=== PATIENT | female | born 1990 | race Caucasian/White ===

== ENCOUNTER 2018-03-12 08:56 | Emergency (ER) | payer MEDICAID, OTHER ==
--- NOTE | 2018-03-12 10:26 | CR ---
DATE OF SERVICE: 03/12/18 CLINICAL DATA: Wrist pain RIGHT WRIST: There is a small osseous density dorsal to the proximal carpal row on the lateral view consistent with a small bony avulsion. This does appear to be acute. No other acute abnormalities. No dislocation. [id number] [facility]
--- NOTE | 2018-03-12 13:23 | ER ---
DATE OF SERVICE: 03/12/2018 The patient is a 27-year-old female, who comes into the ER having fallen and landed on her right wrist. She has pain on the lateral aspect of the wrist. There is minimal swelling. No ecchymosis or abrasion. She was wearing a Fitbit. She feels like her Fitbit had pressed into that area and injured it. She did land on her hand. An x-ray was obtained. The patient has a nondisplaced chip fracture on the triquetral bone. The patient was sent over to the clinic, where the casting material was available, and a cast was applied. I did discuss with the patient that she needs to be careful, as it could continue to swell, so she is going to go home and elevate it, ice it, and if there is any swelling, numbness, tingling in her fingers or if the cast for any reason feels too tight, would have her return to clinic and we would remove the cast or at least bivalve it for now. ASSESSMENT: Triquetral fracture. MARCELA/LEX /[id number] BAYLEE
== END 2018-03-12 10:16 | disposition home or self-care (01) ==
LOC: LB.ED 08:56
DX: S62.114A Nondisplaced fracture of triquetrum [cuneiform] bone, right wrist, initial encounter for closed fracture (principal); W11.XXXA Fall on and from ladder, initial encounter
CPT/HCPCS: 73100-RT; 99283

== ENCOUNTER 2018-07-11 19:16 | Emergency (ER) | payer OTHER ==
[2018-07-11] MEDS ORDERED: LORazepam 2 MG/ML SDV IM ONE (19:42)
[2018-07-11] MEDS ORDERED: LORazepam 1 MG Tab ONE (20:00)
--- NOTE | 2018-07-12 08:12 | EDM.PDOCBH ---
ED HPI GENERAL MEDICAL PROBLEM - General Chief Complaint: Behavioral/Psych Stated Complaint: ANXIETY ATTACK Time Seen by Provider: 07/11/18 19:48 Source of Information: Reports: Patient History Limitations: Reports: No Limitations - History of Present Illness INITIAL COMMENTS - FREE TEXT/NARRATIVE: This is a 27yo F here for an anxiety attack. She has had some minor attacks in the past but todays episodes have been severe and the one that brought her to the ER has been the worse. She is hyperventilation and nursing staff recommended breathing into a brown paper bag. She is changing jobs and under increased stress. Onset: Sudden Duration: Minutes:, Getting Worse Location: Reports: Generalized - Related Data Allergies Allergy/AdvReac Type Severity Reaction Status Date / Time No Known Allergies Allergy Verified 07/11/18 23:10 Home Meds: Home Meds NK [No Known Home Meds] 07/11/18 [History] Past Medical History - Past Health History Medical/Surgical History: Denies Medical/Surgical History HEENT History: Reports: Impaired Vision Musculoskeletal History: Reports: Fracture, Other (See Below) Other Musculoskeletal History: chipped bone in right wrist Psychiatric History: Reports: Anxiety, Panic Attack - Past Surgical History HEENT Surgical History: Reports: None Musculoskeletal Surgical History: Reports: None Social & Family History - Tobacco Use Smoking Status *Q: Never Smoker - Recreational Drug Use Recreational Drug Use: No ED ROS GENERAL - Review of Systems Review Of Systems: ROS reveals no pertinent complaints other than HPI. ED EXAM, BEHAVIORAL HEALTH - Physical Exam Exam: See Below Exam Limited By: No Limitations General Appearance: Alert, WD/WN, Severe Distress Eye Exam: Bilateral Eye: EOMI, PERRL Ears: Normal External Exam Nose: Normal Inspection Throat/Mouth: Normal Inspection Head: Atraumatic, Normocephalic Neck: Normal Inspection, Supple, Non-Tender Respiratory/Chest: No Respiratory Distress, Lungs Clear, No Accessory Muscle Use Cardiovascular: Normal Peripheral Pulses, Tachycardia GI/Abdominal: Normal Bowel Sounds Back Exam: Normal Inspection Extremities: Normal Inspection Neurological: Alert Psychiatric: Alert, Tearful, Agitated, Pressured Speech Skin Exam: Warm, Dry, Intact COURSE, BEHAVIORAL HEALTH COMP - Course Vital Signs: Last Vital Signs Temp 37.4 C 07/11/18 19:58 Pulse 112 H 07/11/18 19:58 Resp 20 07/11/18 19:58 BP 111/78 07/11/18 19:58 Pulse Ox 96 07/11/18 19:58 Orders, Labs, Meds: Medications Discontinued Medications Generic Name Dose Route Start Last Admin Trade Name Carlos PROlman Reason Stop Dose Admin Lorazepam 1 mg 07/11/18 19:42 07/11/18 19:47 Ativan IM 07/11/18 19:43 1 mg ONETIME ONE Administration Departure - Departure Time of Disposition: 20:30 Disposition: Home, Self-Care 01 Condition: Good Clinical Impression: Panic disorder, Panic attack - Discharge Information Instructions: Hyperventilation, Alprazolam tablets, Panic Attack, Lorazepam tablets Referrals: PCP,None [Primary Care Provider] - Forms: ED Department Discharge Additional Instructions: We sent you home with Ativan (Lorazepam). You can start by taking 1/2 tab daily for anxiety. If it doesn't work, take the other half. You may take 1mg (1 tab) 3 times a day if needed. Fill the script for Xanax (Alprazolam) at the local pharmacy. Take this medication the same way you do the Ativan. Follow up at the clinic as needed. If you are having frequent panic attacks, we can see about starting you on a longer acting medication for anxiety. No driving or using alcohol while on this medication. If you are still having anxiety, do not go to work. - Problem List & Annotations (1) Panic attack SNOMED Code(s): 052488722 Code(s): F41.0 - PANIC DISORDER [EPISODIC PAROXYSMAL ANXIETY] Status: Acute (2) Panic disorder SNOMED Code(s): 454842606 Code(s): F41.0 - PANIC DISORDER [EPISODIC PAROXYSMAL ANXIETY] Status: Acute - Problem List Review Problem List Initiated/Reviewed/Updated: Yes - Assessment/Plan Plan: Counseled on medication use and side effects. Discussed addiction and close monitoring of sedation with medication use. Discussed sparing use. Patient to f/ u in clinic in 1-2 wks. F/u as needed.
== END 2018-07-11 20:22 | disposition home or self-care (01) ==
LOC: LB.ED 19:28
DX: F41.0 Panic disorder [episodic paroxysmal anxiety] (principal)
CPT/HCPCS: 96372; 99282; A9270-GY; J2060

== ENCOUNTER 2022-07-17 08:16 | Emergency (ER) | payer MEDICAID ==
[2022-07-17] MEDS ORDERED: Ketorolac 60 MG/2 ML SDV IM ONE (09:00)
[2022-07-17] MEDS ORDERED: Ketorolac 60 MG/2 ML SDV ONE (09:10)
== END 2022-07-17 09:15 | disposition home or self-care (01) ==
LOC: LB.ED 08:16
DX: S46.912A Strain of unspecified muscle, fascia and tendon at shoulder and upper arm level, left arm, initial encounter (principal)
CPT/HCPCS: 96372; 99283; J1885

== ENCOUNTER 2023-02-13 02:51 | Emergency (ER) | payer SELFPAY ==
[2023-02-13] MEDS ORDERED: Sodium Chloride 0.9% 10 ML Syringe FLUSH PRN (03:14)
[2023-02-13] MEDS ORDERED: Sodium Chloride 0.9% 1,000 ML IV ONE (03:16)
[2023-02-13] MEDS ORDERED: GI Cocktail Oral Solution 30 ML PO ONE (03:19)
[2023-02-13] MEDS ORDERED: Famotidine 20 MG/2 ML SDV IVPUSH ONE (03:20)
[2023-02-13] MEDS ORDERED: Ondansetron 4 MG/2 ML SDV IVPUSH ONE (03:21)
[2023-02-13] MEDS ORDERED: Pantoprazole 40 MG in Sodium Chloride 0.9% 100 ML IV ONE (03:21)
[2023-02-13] MEDS ORDERED: Sucralfate 1 GM Tab PO ONE (03:22)
[2023-02-13] MEDS ORDERED: Sucralfate 1 GM Tab ONE (03:24)
[2023-02-13 03:35] LABS: BASOPHILS ABSOLUTE AUTO 0.03 K/uL (0.02-0.10); BASOPHILS PERCENT AUTO 0.2 % (0.0-0.5); EOSINOPHILS ABSOLUTE AUTO 0.03 K/uL (0.04-0.40); EOSINOPHILS PERCENT AUTO 0.2 % (1.0-5.0); HEMATOCRIT 38.3 % (37.0-47.0); HEMOGLOBIN 12.8 g/dL (11.5-16.5); LYMPHOCYTES ABSOLUTE AUTO 1.26 K/uL (1.50-4.00); LYMPHOCYTES PERCENT AUTO 8.1 % (20.0-40.0); MEAN CORPUSCULAR HEMOGLOBIN 32.2 pg (27.0-32.0); MEAN CORPUSCULAR HGB CONC 33.4 g/dL (31.0-35.0); MEAN CORPUSCULAR VOLUME 96 fL (76-96); MEAN PLATELET VOLUME 9.4 fL (6.0-10.0); MONOCYTES ABSOLUTE AUTO 0.98 K/uL (0.20-0.80); MONOCYTES PERCENT AUTO 6.3 % (3.0-10.0); NEUTROPHILS ABSOLUTE AUTO 13.34 K/uL (2.00-7.50); NEUTROPHILS PERCENT AUTO 85.2 % (45.0-70.0); PLATELET COUNT,PLT 309 K/uL (150-500); RED BLOOD CELL COUNT 3.98 M/uL (3.80-5.80); RED CELL DISTRIBUTION WIDTH 12.9 % (11.0-16.0); WHITE BLOOD CELL COUNT,WBC 15.6 K/uL (4.0-11.0)
[2023-02-13] MEDS: Ondansetron 4 MG/2 ML SDV IVPUSH ONE ×2 (03:47→07:04)
[2023-02-13 03:55] LABS: A/G RATIO 1.1 (0.8-2.0); ALBUMIN 3.9 g/dL (3.4-5.0); ANION GAP 15.3 mmol/L (5.0-15.0); BILIRUBIN TOTAL 0.4 mg/dL (0.0-1.0); BUN/CREATININE RATIO 13.5 (6-25); CALCIUM 8.9 mg/dL (8.5-10.1); CARBON DIOXIDE,CO2 23.8 mmol/L (21.0-32.0); CREATININE 0.89 mg/dL (0.55-1.02); EST CRCL DRUG DOSING (CG) 94.84 mL/min; POTASSIUM,K 3.1 mmol/L (3.5-5.1); PROTEIN TOTAL,TP 7.6 g/dL (6.4-8.2)
[2023-02-13] MEDS ORDERED: HYDROmorphone 2 MG/ML Syringe ONE ×2 (03:57→06:14)
[2023-02-13] MEDS: HYDROmorphone 2 MG/ML Syringe IVPUSH PRN ×2 (03:58→06:17)
[2023-02-13] MEDS ORDERED: Iopamidol 612 MG/ML 100 ML Bottle IV PRN (04:04)
[2023-02-13 04:11] LABS: APPEARANCE,URINE CLEAR (CLEAR); BILIRUBIN,URINE NEGATIVE (NEGATIVE); COLOR,URINE YELLOW; GLUCOSE,URINE NEGATIVE (NEGATIVE); KETONES,URINE 40 mg/dL (NEGATIVE); LEUKOCYTE ESTERASE,URINE NEGATIVE (NEGATIVE); NITRITE,URINE NEGATIVE (NEGATIVE); OCCULT BLOOD,URINE NEGATIVE (NEGATIVE); PROTEIN,URINE NEGATIVE (NEGATIVE); UROBILINOGEN,URINE 0.2 E.U./dL (0.2-1.0)
[2023-02-13] MEDS ORDERED: Sodium Chloride 0.9% 50 ML SDV FLUSH SCH (04:15)
[2023-02-13 04:16] LABS: SQUAMOUS EPITHELIAL CELLS,UR MANY /HPF; WBC,URINE 0-5 /HPF
[2023-02-13 04:17] LABS: AMORPHOUS SEDIMENT,URINE FEW /HPF; BACTERIA,URINE MANY /HPF
[2023-02-13] MEDS ORDERED: Pantoprazole 40 MG Vial ONE (04:18)
[2023-02-13] MEDS ORDERED: Sodium Chloride 0.9% 1,000 ML IV SCH (06:15)
[2023-02-13] MEDS ORDERED: NS + KCl 20mEq/L 1,000 ML ONE (06:24)
[2023-02-13] MEDS ORDERED: NS + KCl 20mEq/L 1,000 ML IV SCH (06:30)
[2023-02-13] MEDS ORDERED: Ondansetron 4 MG/2 ML SDV ONE (07:03)
== END 2023-02-13 07:18 | disposition critical access hospital (66) ==
LOC: LB.ED 02:51
DX: K37 Unspecified appendicitis (principal)
CPT/HCPCS: 36415; 74176; 80053; 81001; 81025; 83690; 85025; 96361; 96365; 96367; 96375; 96376; 99285-25; A9270-GY; C9113; J1170; J2405; J3480; J3490; J7030